=== PATIENT | male | born 1970 | race Two or more races ===

== ENCOUNTER 2017-04-21 11:12 | Observation (INO) | payer SELFPAY ==
--- NOTE | ~2017-04-21 | HP ---
History And Physical [facility] [id number] [place]. [address] NAME: EDMUND AVENDANO : 74 STATUS : ADM Elaine PAT#: [id number] AGE: 46 ADM/REG DATE : 04/21/17 MR#: [id number] REPORT SERV DATE: 04/21/17 DICTATED BY: RIA FAITH DATE: 04/21/17 REPORT STATUS : Draft TRANSCRIBED BY: MODL DATE: 04/21/17 DATE OF ADMISSION: 04/21/2017 ATTENDING SURGEON: Dr. Ria Faith. RESIDENT: Dr. Sylvester Morales. CHIEF COMPLAINT: Abdominal pain. HISTORY OF PRESENT ILLNESS: This is a 46-year-old male, who comes to the hospital with 24 hours of acute onset lower midline abdominal pain. Pain was acute in onset. No clear inciting factors although he did have a relatively large meal prior. The patient denies any nausea or vomiting. The patient denies any fevers or chills. The patient did have a bowel movement yesterday evening around midnight. Nothing seemed to help or to make the pain worse. The patient says he had 1 prior episode in the past year for which he did not seek medical treatment. PAST MEDICAL HISTORY: None. PAST SURGICAL HISTORY: None. SOCIAL HISTORY: Denies any alcohol, tobacco, or illicit drug use. FAMILY HISTORY: He denies any known family history of bowel disease. ALLERGIES: NO KNOWN DRUG ALLERGIES. HOME MEDICATIONS: None. REVIEW OF SYSTEMS: Pertinent positives and negatives as above per the HPI. The patient denies any sick contacts. The patient denies any weight loss. The patient denies any bloody diarrhea. The patient denies any weakness, chest pain, or shortness of breath. A full 12-point review of systems was completed with no additional findings. PHYSICAL EXAMINATION: VITAL SIGNS: T-max 98.1, blood pressure 123/71, heart rate 65, respirations 16, and breathing 97% on room air. GENERAL EXAM: This is an adult male, in no acute distress. He is nontoxic appearing. CARDIOVASCULAR: Regular rate and rhythm. PULMONARY: Clear to auscultation bilaterally. ABDOMINAL EXAM: Abdomen is soft, nondistended. Nontender to palpation. LABS: Urinalysis is negative. CBC significant for white count of 14.9 with a left shift, hematocrit is 41.5, and platelets 280. Lactate is normal at 0.8. Renal panels within normal History And Physical [address] [facility] [place]. [address] NAME: EDMUND AVENDANO : 74 STATUS : ADM Elaine PAT#: [id number] AGE: 46 ADM/REG DATE : 04/21/17 MR#: [id number] REPORT SERV DATE: 04/21/17 DICTATED BY: RIA FAITH DATE: 04/21/17 REPORT STATUS : Draft TRANSCRIBED BY: JOSE DATE: 04/21/17 limits. LFTs are within normal limits with the exception of a mildly elevated alkaline phosphatase of 124, lipase is normal. IMAGING: CT of the abdomen and pelvis without contrast, significant for a distended loop of small intestine with some fecalization showing both proximal and distal areas of nondistended bowel, possible transition point in the right lower pelvis. ASSESSMENT AND PLAN: This is a 46-year-old male with abdominal pain. 1. Benign abdominal exam. We will admit to the floor for observation. Get a small-bowel follow-through with Gastrografin. We will recheck abdominal films in the morning as well. 2. We will keep n.p.o. for now. Continue IV fluids. CA/MODL Ria Faith M.D. / [id number] CC: Lizzy Rock M.D.
[2017-04-21 10:57] LABS: BASOPHILS 0.3 %; BASOPHILS ABSOLUTE 0.05 10/3/uL (0.0-0.16); EOSINOPHILS 23.9 %; EOSINOPHILS ABSOLUTE 3.56 10/3/uL (0.0-0.53); ER CBC TAT 0 Hrs 05 Mins; HEMATOCRIT 41.5 % (40.0-51.0); HEMOGLOBIN 14.6 g/dL (13.6-17.8); IMMATURE GRANULOCYTES 0.2 %; LYMPHOCYTES ABSOLUTE 1.64 10/3/uL (0.67-4.30); MANUAL DIFF NO %; MEAN CORPUS HGB CONC 35.2 g/dL (32.0-36.0); MEAN CORPUSCULAR HEMOGLOB 29.4 pg (26.0-34.0); MEAN CORPUSCULAR VOLUME 83.7 fL (80-100); MEAN PLATELET VOLUME 9.2 fL (9.2-13.0); MONOCYTES 5.4 %; MONOCYTES ABSOLUTE 0.81 10/3/uL (0.21-1.20); NEUTROPHILS 59.2 %; NEUTROPHILS ABSOLUTE 8.81 10/3/uL (2.02-8.40); PLATELET COUNT 280 10/3/uL (150-400); RED CELL COUNT 4.96 10/6/uL (4.7-6.1); WHITE BLOOD CELLS 14.9 10/3/uL (4.5-10.5)
[2017-04-21 10:58] LABS: IMMATURE GRANULOCYTES ABSOLUTE 0.03 10/3/uL (0.0-0.11)
[2017-04-21 11:02] LABS: ASCORBIC ACID (UR NOT ORDER) NEG (NEG); BILIRUBIN, URINE NEGATIVE (NEG); ER URINALYSIS TAT 0 Hrs 10 Mins; KETONE, URINE NEGATIVE (NEG); LEUKOCYTE ESTERASE(NOT OR NEG (NEG); NITRITE (URINE) NEG (NEG); WBC (NOT ORDERED) (RFLEX) < 1 (0-5)
[2017-04-21 11:13] LABS: A/G RATIO 1.3 (0.7-1.9); ALBUMIN 4.4 G/DL (3.5-5.0); ALKALINE PHOSPHATASE 124 U/L (45-117); BUN (BLOOD UREA NITROGEN) 17 MG/DL (6-23); CALCIUM, SERUM 9.1 MG/DL (8.5-10.4); CHLORIDE, SERUM 103 MMOL/L (96-112); CO2 (CARBON DIOXIDE) 27 MMOL/L (24-34); CREATININE 0.75 MG/DL (0.70-1.30); GFR AFRICAN AMERICAN 129 ML/MIN (>=60); GFR NON AFRICAN AMERICAN 112 ML/MIN (>=60); GLOBULIN 3.5 G/DL (2.5-4.1); GLUCOSE, SERUM 101 MG/DL (60-99); POTASSIUM, SERUM 4.1 MMOL/L (3.5-5.3); SGOT(AST) 27 U/L (5-40); SGPT(ALT) 30 U/L (5-65); SODIUM, SERUM 136 MMOL/L (135-148); TOTAL BILIRUBIN 0.5 MG/DL (0-1.2); TOTAL PROTEIN 7.9 G/DL (6.0-8.5)
[2017-04-21 11:27] LABS: BAND NEUTROPHILS 3 %; EOSINOPHILS 39 %; EOSINOPHILS ABSOLUTE (CALC) 5.81 10/3/uL (0.0-0.53); ER DIFF TAT 0 Hrs 35 Mins; LYMPHOCYTES 7 %; LYMPHOCYTES ABSOLUTE (CALC) 1.04 10/3/uL (0.67-4.30); MONOCYTES 10 %; MONOCYTES ABSOLUTE (CALC) 1.49 10/3/uL (0.21-1.20); NEUTROPHILS ABSOLUTE (CALC) 6.56 10/3/uL (2.02-8.40); PLATELET ESTIMATE ADQ (ADEQUATE); SEGMENTED NEUTROPHIL (0) 41 %; TOTAL NUCLEATED CELLS 100
[2017-04-21 11:28] LABS: RBC MORPHOLOGY NORM (NORMAL)
[2017-04-21] MEDS ORDERED: *DENIES (12:21)
== END 2017-04-22 11:17 | disposition home or self-care (01) ==
LOC: ER 11:12 → CDU1 13:03 → CDU2 14:06
PROVIDERS: Nurse Practitioner
DX: R10.9 Unspecified abdominal pain (principal)
CPT/HCPCS: 74176; 74250; 80053; 81001; 83605; 83690; 85025; 87040; 96374; 96375; 99285; G0378; J1170; J2405